=== PATIENT | male | born 1965 | race Caucasian/White ===

== ENCOUNTER 2020-07-19 17:27 | Emergency (ER) | payer BC ==
[~2020-07-19] VITALS: Ht 185.4 cm; Wt 78.2 kg
--- NOTE | 2020-07-19 17:39 | PHYS DOC ---
Past History Past Medical History: No Pertinent History Adult General Chief Complaint Chief Complaint: BACK PAIN OR INJURY [facility] HPI Patient is a 54-year-old male who presents for back pain. This is an acute on chronic problem. Patient first started having back pain 12 years ago without any known inciting event or trauma. Patient reports having MRI performed around symptom onset and states that he has at least 1 or 2 bulging disks in his lumbar spine. Patient reports pain is been tolerable over the years with as needed use of Advil for pain. He admits worsened back pain over the last 6 months that has progressively limited his ability to do daily activities and physical exercise such as golf which he used to love. Again, patient denies any known inciting event or trauma. Nothing known makes better. Bending over twisting and ambulation make worse. Patient a dull deep lower back pain that radiates to bilateral posterior buttocks with mild radiation into the posterior bilateral hamstring areas. Timing of symptoms is intermittent, and waxes and wanes with physical activity. Patient comes to ER today due to uncontrolled pain. Patient reports he is anxious about his health, has a PCP but does not follow up often with last visit greater than 2 years ago. Admits intermittent palpitations without any chest pain. Denies any unexplained weight loss, neurologic symptoms, fever, history of IV drug use, history of steroid use or known cancer, no saddle anesthesia, no changes in bladder or bowel function, no obvious incontinence, no changes in motor or sensory function, no obvious focal deficits noted Review of Systems Review of Systems Fourteen body systems of review of systems have been reviewed. See HPI for pertinent positives and negative responses, other garcia all other systems are negative, non-pertinent or non-contributory Physical Exam Physical Exam Constitutional: Well developed, well nourished, no acute distress, non-toxic appearance. HENT: Normocephalic, atraumatic, bilateral external ears normal, oropharynx moist, no oral exudates, nose normal. Eyes: PERRLA, EOMI, conjunctiva normal, no discharge. Neck: Normal range of motion, no tenderness, supple, no stridor. Cardiovascular: Heart rate regular, sinus rhythm, no murmurs rubs or gallops Lungs & Thorax: Bilateral breath sounds clear to auscultation Abdomen: Bowel sounds normal, soft, no tenderness, no masses, no pulsatile masses. Nonsurgical abdomen, no peritoneal signs Skin: Warm, dry, no erythema, no rash. Back: No tenderness with palpation, no tenderness or palpable abnormalities to spinous processes of cervical, thoracic, or lumbar spines, positive straight leg raise bilaterally,, no CVA tenderness. Extremities: No tenderness, no cyanosis, no clubbing, ROM intact, no edema. Neurologic: Alert and oriented X 3, reflexes 2/4 bilateral lower extremities, no saddle anesthesia, normal motor & sensory function, no focal deficits noted. Psychologic: Affect normal, judgement normal, mood normal. Current Patient Data Vital Signs Vital Signs Date Time Temp Pulse Resp B/P (MAP) Pulse Ox O2 Delivery O2 Flow Rate FiO2 07/19/20 17:40 98.0 68 18 166/86 (112) 95 EKG EKG EKG ordered and interpreted by myself at 1806 hrs. as sinus rhythm at 64 bpm, unremarkable intervals, no axis deviation, no acute ischemic findings, no Q waves, no STEMI Radiology/Procedures Radiology/Procedures [] Course & Med Decision Making Course & Med Decision Making Ambulatory well appearing patient seen on immediate ER arrival with present ABCs grossly unremarkable Comprehensive history and physical exam performed, subsequent diagnostic studies ordered X1 [place] 5 administered with moderate relief in symptomology Discussed patient's history of presenting illness and reviewed outpatient work- up so far, advised no obvious emergent or surgical findings on physical exam today Discussed unlikely diagnoses of acute/concerning back related pathology given absence of any red flag symptoms of patients with lower back pain Discussed need to reestablish with PCP for further outpatient medical management and diagnostic studies as indicated. I discussed potential role for further imaging and/or need for referral to pain management physician Patient was educated on supportive care, I advised Tylenol for as needed pain control and will write prescription for muscle relaxer. Lower back stretches and other supportive measures were also discussed Strict return precautions were discussed with good understanding by both patient and spouse, all questions and concerns addressed prior to ER departure in stable condition with close PCP follow-up in upcoming 3 to 6 days time Odette Disclaimer Dragon Disclaimer This electronic medical record was generated, in whole or in part, using a voice recognition dictation system. Departure Departure: Impression: Primary Impression: Back pain Disposition: HOME/RESIDENCE PRIOR TO ADM Condition: STABLE Referrals: MITZY ROBLERO MD (PCP) Patient Instructions: Back Exercises, [id number], Back Pain, Adult, Chronic Back Pain Additional Instructions: You were evaluated in the Emergency Department today for back pain. Your evaluation suggests no acute abnormalities which require further intervention at this time. - Move around as tolerated but avoiding heavy lifting. ``Bed rest is not recommended nor is it the best treatment for low back pain. - Medications will help control your discomfort: - Ibuprofen (800 mg every 8 hours for pain). - Tylenol - Do not drink alcohol, drive a car, operate machinery, or get up on ladders or heights when taking any prescribed pain medications. - Do not drive home if you received prescribed pain medications here in the ED. Please follow up with your primary care physician as needed. If you do not have a primary doctor, you can call your insurance company to find one. If you do not have insurance, you can go to the finance/registration department for more assistance. Return to the ED immediately if you develop any of the following problems: - Leaking urine or difficulty urinating; - Inability to control your bowels; - New numbness or weakness in your legs or numbness between your legs; - Inability to walk - Fever Scripts Cyclobenzaprine Hcl (CYCLOBENZAPRINE HCL) 5 Mg Tablet 1 TAB PO QHS for Back pain, #15 TAB Prov: DONNA ANDRADE DO 07/19/20 Justification of Admission: Justification of Admission: Justification of Admission Dx: N/A DONNA ANDRADE DO Jul 19, 2020 17:39
[2020-07-19 17:40] VITALS: BP 166/86
[2020-07-19] MEDS ORDERED: HYDROcodone/APAP 5/325MG 1 TAB TABLET PO ONE (18:00)
--- NOTE | 2020-07-19 18:07 | EKG ---
[facility] ED [facility] [place] [id number] Test Date: 2020-07-19 Test Time: 18:02:17 Pat Name: TRIPP HICKS Department: Room: Gender: M Gm Video: : 1965 Requested By: DONNA ANDRADE Order Number: [id number] Reading MD: Measurements Intervals [place] Rate: 64 P: 24 [place]: 140 QRS: 49 QRSD: 80 T: 34 QT: 370 QTc: 381 Interpretive Statements SINUS RHYTHM NORMAL ECG RI6.02 No previous ECG available for comparison
[2020-07-19] MEDS ORDERED: CYCL5TAB PO (18:08)
== END 2020-07-19 18:17 | disposition home or self-care (01) ==
LOC: ER 17:27
DX: M54.5 Low back pain (principal)
CPT/HCPCS: 93005; 99283

== ENCOUNTER → 2021-08-20 | Outpatient (CLI) | payer BC ==
[~2021-08-20] MED LIST: CYCL5TAB PO; IOHEXOL 350 MG/ML 100 ML VIAL. IV ONE
--- NOTE | 2021-08-20 16:00 | RAD ---
CTA CHEST INDICATION: ABDNORMAL LABS, SHORT OF AIR Comparison: None. TECHNIQUE: Following the uneventful administration of intravenous contrast, 100 cc Omnipaque 350, axi al CT sections were obtained through the lungs and upper abdomen. Multiplanar reconstructions and MIP images were obtained. RS compliance statement: One or more of the following individualized dose reduction techniques were utilized for this examinat ion: 1. Automated exposure control 2. Adjustment of the mA and/or kV according to patient size 3. Use of iterative reconstruction technique FINDINGS: Pulmonary arteries: No evidence of pulmonary thromboembolic disease Lungs and Airways: Small area of consolidation in the right lower lobe. No abnormality of the central airways. Pleura: The pleural spaces are normal. Heart and Mediastinum: The visualized thyroid is normal in size and attenuation. No axillary or supra clavicular lymphadenopathy. No mediastinal, hilar or retrocrural lymphadenopathy. The heart and peric ardium are within normal limits. The great vessels of the thorax are normal. Abdomen: Limited images through the upper abdomen show no abnormality of the visualized organs. Bones and Soft Tissues: The visualized bones and chest wall soft tissues are within normal limits. IMPRESSION: 1. No evidence of pulmonary thromboembolic disease. 2. Small region of consolidation in the right lower lobe, probably an infectious/inflammatory process . 2-3 month follow-up chest CT could be obtained to ensure resolution. Electronically signed by: Erick Penn MD (08/20/2021 3:57 PM) [id number]
== END ==
LOC: CT 15:07
PROVIDERS: ATTEND Family Medicine
DX: R79.9 Abnormal finding of blood chemistry, unspecified (principal)
CPT/HCPCS: 71275; Q9967